=== PATIENT | female | born 1995 | race Caucasian/White ===

== ENCOUNTER → 2017-06-03 | Outpatient (CLI) | payer BC ==
--- NOTE | 2017-06-03 17:28 | DIAGNOSTIC IMAGING REPORT ---
CHEST CT WITH CONTRAST CT DOSE: 512.71 mGy.cm HISTORY: Mediastinal widening ABNORMAL CXR, SUSPECT ENLARGED MASS TECHNIQUE: Multiaxial CT images of the chest, abdomen and pelvis were performed following the intravenous administration of contrast. 119 mL Optiray 320 IV contrast was administered. A dose lowering technique was utilized adhering to the principles of ALARA. COMPARISON: None. FINDINGS: CT CHEST: No dominant thyroid nodule. Anterior mediastinal mass appears predominantly homogeneous with soft tissue attenuation and lobulated margins infiltrating between the origin of the great vessels which appear widely patent overall measuring up to approximately 7.6 x 4.1 x 6.9 cm in AP, transverse and craniocaudal dimensions. No definite invasion into the adjacent structures. No enlarged subcarinal or hilar lymph nodes identified. No axillary adenopathy. Heart is normal in size without pericardial effusion. Thoracic aorta is normal in course and caliber without aneurysm or dissection. The left vertebral artery emanates strictly from the aortic arch. The imaged great vessels are patent. The opacified pulmonary arterial tree appears unremarkable. No pneumothorax or pleural effusion. No focal airspace consolidation to suggest pneumonia. No suspicious pulmonary nodules or masses. Central airways are patent. Soft tissues of the chest are unremarkable. Breast tissue appears homogeneous. Bones of the chest appear intact. No suspicious lytic or blastic bony lesions of the chest identified. CT ABDOMEN/PELVIS: The liver, spleen, gallbladder, pancreas and adrenal glands are within normal limits. The kidneys, ureters and urinary bladder are unremarkable. Uterus and adnexa are unremarkable. Trace free pelvic fluid, likely physiologic. No adnexal mass lesions identified. Aorta is normal in course and caliber. No bulky retroperitoneal adenopathy. No pathologically enlarged lymph nodes of the abdomen or pelvis. There is no bowel junction or focal bowel wall thickening. Mild to moderate stool wire above the rectosigmoid. Normal-appearing appendix. Soft tissues are unremarkable. Bones appear intact. No suspicious lytic or blastic bony lesions. IMPRESSION: 1. Indeterminate lobulated soft tissue attenuating homogeneous mass of the anterior mediastinum measures up to 7.6 cm. Differential considerations would include thymic epithelial tumor, lymphoma or less likely a germ cell tumor. Surgical consultation recommended. 2. No pathologic subcarinal, hilar or axillary lymph nodes. No pathologically enlarged lymph nodes of the abdomen or pelvis. 3. No acute intra-abdominal or intrapelvic abnormality identified. Electronically signed by: Valentino Kunz M.D. 06/03/2017 5:26 PM Dictated Date/Time: 06/03/2017 5:09 PM
== END | disposition home or self-care (01) ==
LOC: C.CTS 16:44
PROVIDERS: ATTEND Family Medicine
DX: R93.8 Abnormal findings on diagnostic imaging of other specified body structures (principal)

== ENCOUNTER → 2017-07-04 | Outpatient (CLI) | payer BC | END | disposition home or self-care (01) | LOC: C.LAB 15:20 | PROVIDERS: ATTEND Obstetrics & Gynecology | DX: Z31.41 Encounter for fertility testing (principal) ==